=== PATIENT | female | born 1960 | race Caucasian/White ===

== ENCOUNTER 2023-07-12 20:16 | Outpatient (CLI) | payer MEDICARE, SELFPAY ==
[2023-07-12 18:35] LABS: Basophils # 0.1 K/mm3 (0-0.2); Basophils % 1.1 % (0.1-2.0); Eosinophils # 0.2 K/mm3 (0.0-0.4); Eosinophils % 2.1 % (0.1-12.0); Hematocrit 46.5 % (37.0-47.0); Hemoglobin 14.7 g/dL (12.2-16.2); Lymphocytes # 2.5 K/mm3 (0.7-4.5); Lymphocytes % 32.7 % (10-50); Mean Corpuscular HGB Conc 31.6 g/dL (31.8-35.4); Mean Corpuscular Hemoglobin 31.2 pg (27.0-31.2); Mean Corpuscular Volume 98.8 fl (81-99); Mean Platelet Volume 8.5 fl (7.4-10.4); Monocytes # 0.4 K/mm3 (0.1-1.0); Monocytes % 4.7 % (1.7-9.3); Neutrophils # 4.5 K/mm3 (1.8-7.8); Neutrophils % 59.5 % (37.0-80.0); Platelet Count 435 K/mm3 (142-424); Red Blood Count 4.71 M/mm3 (4.20-5.40); Red Cell Distribution Width 13.8 % (11.5-17.5); White Blood Count 7.6 K/mm3 (4.8-10.8)
[2023-07-12 18:46] LABS: Alanine Aminotransferase 23 U/L (12-78); Albumin Level 4.1 g/dl (3.5-5.0); Albumin/Globulin Ratio 1.4 (1.1-1.8); Alkaline Phosphatase 111 U/L (38-126); Anion Gap 10.1 mEq/L (5-15); Aspartate Amino Transferase 27 U/L (14-36); Bilirubin,Total 0.3 mg/dl (0.2-1.3); Blood Urea Nitrogen 7 mg/dl (7-17); Calcium 9.8 mg/dl (8.4-10.2); Carbon Dioxide 26 mmol/L (22.0-30.0); Chloride 109 mmol/L (98-107); Chol/HDL Ratio 4.4 (1-3.5); Cholesterol 253 mg/dl (140-200); Estimated Glomerular Filt Rate 101 ml/min (>60); GFR (African American) 122 ML/MIN (>60); Globulin 2.9 g/dL (1.3-3.2); Glucose 107 mg/dl (74-100); HDL Cholesterol 58 mg/dl (40-60); Potassium 4.1 mmoL/L (3.5-5.1); Sodium 141 mmol/L (136-145); Triglycerides 270 mg/dl (30-150); VLDL Cholesterol 54 mg/dL (0-40)
[2023-07-12 18:56] LABS: Direct LDL Cholesterol 61.74 mg/dL (100-129)
[2023-07-12 19:16] LABS: Thyroid Stimulating Hormone 0.28 uIU/mL (0.465-4.68)
[2023-07-12 19:37] LABS: Vitamin B12 > 1000 pg/mL (239-931)
[2023-07-12 20:32] LABS: Hemoglobin A1C 5.5 % (4.0-6.0)
== END 2023-07-12 23:59 ==
LOC: LAB.DROPOF 20:18
PROVIDERS: Nurse Practitioner; PCP Nurse Practitioner Acute Care; Visit Provider Nurse Practitioner Acute Care
DX: Z79.899 Other long term (current) drug therapy (principal); E78.5 Hyperlipidemia, unspecified; K21.9 Gastro-esophageal reflux disease without esophagitis; M19.90 Unspecified osteoarthritis, unspecified site; F31.9 Bipolar disorder, unspecified
CPT/HCPCS: 80053; 80061; 82607; 83036; 84443; 85025

== ENCOUNTER 2023-07-26 10:38 | Outpatient (CLI) | payer MEDICARE, SELFPAY ==
--- NOTE | 2023-07-26 10:45 | CT_ITS ---
FINAL REPORT TECHNIQUE: Thin section axial images were obtained from the lung apices to the upper abdomen by computed tomography. Reformatted images were obtained and reviewed. This study was performed with techniques to keep radiation doses al low as reasonably achievable (ALARA). Individualized dose reduction techniques using automated exposure control or adjustment of mA and/or kV according to the patient's size were employed. CLINICAL HISTORY: lung cancer screening. Smokes 1 pack per day for 53 yrs. Hx of cervical cancer 1984. Uncle had lung cancer. Exposed to second hand smoke. COMPARISON: None FINDINGS: CHEST CT LOW DOSE 62-year-old female, current smoker, 93-pbbt-tedx history of smoking. CTDI vol (mGy): 2.9 DLP (mGy-cm): 102.38 There is no axillary adenopathy. There is no mediastinal or hilar mass or adenopathy. The heart is normal in size. There is no pericardial or pleural effusion. There is mild emphysema and mild pulmonary scarring. Lung window images demonstrate a 4 mm nodule in the left upper lobe, best seen on image #27 of series 4. There is also a posterior right upper lobe 5 mm nodule seen on image #17 of series 4, and another 5 mm nodule on series 18 of series 4. Limited images of the upper abdomen are unremarkable. IMPRESSION: Lung-RADS category 2. Recommend 12 month follow up low dose chest CT. Reviewed, Interpreted and Dictated by Osvaldo Hercules MD Transcribed by Destini Sibley Authenticated and [facility]
--- NOTE | 2023-07-26 10:45 | MM_ITS ---
PROCEDURE INFORMATION: Exam: MG Bilateral Screening 3D Mammography Exam date and time: 07/26/2023 10:37 AM Age: 62 years old Clinical indication: Screening examination TECHNIQUE: Imaging protocol: Bilateral Screening tomosynthesis and 2D mammography including computer-aided detection (CAD) when performed. COMPARISON: No relevant prior studies available. FINDINGS: MAMMOGRAPHY: Breast composition: The breasts are almost entirely fatty. Mass: None. Architectural distortion: None. Calcifications: No suspicious calcifications. Asymmetric density: None. Skin thickening: None. Axillary adenopathy: None. IMPRESSION: No mammographic evidence of malignancy. Annual screening is recommended unless otherwise clinically indicated. ASSESSMENT: BI-RADS Category 1: Negative
== END 2023-07-26 23:59 | disposition home or self-care (01) ==
LOC: RAD 10:41
PROVIDERS: PCP Nurse Practitioner; Visit Provider Nurse Practitioner
DX: Z87.891 Personal history of nicotine dependence (principal); Z12.2 Encounter for screening for malignant neoplasm of respiratory organs; Z12.31 Encounter for screening mammogram for malignant neoplasm of breast
CPT/HCPCS: 71271; 77063; 77067

== ENCOUNTER 2023-08-01 18:00 | Outpatient (CLI) | payer MEDICARE, SELFPAY ==
[2023-08-01 20:19] LABS: Free Thyroxine Index 3.7 ug/dL (5.93-13.13); T4 (Thyroxine) 10.6 ug/dl (5.53-11.0); Triiodothryronine (T3) Uptake 35 % (23.5-40.5)
[2023-08-01 20:32] LABS: Thyroid Stimulating Hormone 0.34 uIU/mL (0.465-4.68)
== END 2023-08-01 23:59 | disposition home or self-care (01) ==
LOC: LAB.DROPOF 08-02 10:20
PROVIDERS: PCP Nurse Practitioner; Visit Provider Nurse Practitioner
DX: R79.89 Other specified abnormal findings of blood chemistry (principal); R94.6 Abnormal results of thyroid function studies
CPT/HCPCS: 84436; 84443; 84479

== ENCOUNTER 2023-09-26 18:00 | Outpatient (CLI) | payer MEDICARE, SELFPAY ==
[2023-09-26 19:19] LABS: Alanine Aminotransferase 19 U/L (12-78); Albumin Level 4.2 g/dl (3.5-5.0); Albumin/Globulin Ratio 1.3 (1.1-1.8); Alkaline Phosphatase 109 U/L (38-126); Anion Gap 13.3 mEq/L (5-15); Aspartate Amino Transferase 27 U/L (14-36); Bilirubin,Total 0.5 mg/dl (0.2-1.3); Blood Urea Nitrogen 12 mg/dl (7-17); Calcium 9.9 mg/dl (8.4-10.2); Carbon Dioxide 25 mmol/L (22.0-30.0); Chloride 106 mmol/L (98-107); Estimated Glomerular Filt Rate 84 ml/min (>60); GFR (African American) 102 ML/MIN (>60); Globulin 3.2 g/dL (1.3-3.2); Glucose 99 mg/dl (74-100); Potassium 4.3 mmoL/L (3.5-5.1); Sodium 140 mmol/L (136-145); Total Protein,Serum 7.4 g/dl (6.3-8.2)
== END 2023-09-26 23:59 | disposition home or self-care (01) ==
LOC: LAB.DROPOF 09-27 08:30
PROVIDERS: PCP Family Medicine; Visit Provider Family Medicine
DX: K21.9 Gastro-esophageal reflux disease without esophagitis (principal)
CPT/HCPCS: 80053

== ENCOUNTER 2023-10-20 09:16 | Outpatient (CLI) | payer MEDICARE, SELFPAY ==
--- NOTE | 2023-10-20 09:21 | XR_ITS ---
FINAL REPORT CLINICAL HISTORY: left knee pain and instability COMPARISON: None FINDINGS: Two views of the left knee were obtained. There is no evidence of fracture or dislocation. The bony alignment is normal. Mild degenerative change is present. There is no evidence of joint effusion. No localized soft tissue abnormality is seen. There is no evidence of foreign body. IMPRESSION: Mild degenerative change of the left knee without acute bony abnormality. Reviewed, Interpreted and Dictated by Jerome Cordova III, MD Transcribed by Destini Sibley Authenticated and [facility]
== END 2023-10-20 23:59 | disposition home or self-care (01) ==
LOC: RAD 09:17
PROVIDERS: PCP Nurse Practitioner; Visit Provider Orthopaedic Surgery
DX: M25.562 Pain in left knee (principal); M23.52 Chronic instability of knee, left knee
CPT/HCPCS: 73560

== ENCOUNTER 2024-10-04 18:31 | Outpatient (CLI) | payer MEDICARE, SELFPAY ==
[2024-10-04 18:52] LABS: Basophils % 0.3 % (0.1-2.0); Eosinophils # 0.1 Kmm3 (0.0-0.4); Eosinophils % 2.2 % (0.1-12.0); Hematocrit 41.5 % (37.0-47.0); Immature Granulocytes # 0.02 10^3uL; Immature Granulocytes % 0.3 %; Lymphocytes # 2.6 K/mm3 (0.7-4.5); Mean Corpuscular HGB Conc 33.7 g/dL (31.8-35.4); Mean Corpuscular Hemoglobin 31.3 pg (27.0-31.2); Mean Corpuscular Volume 92.8 fl (81-99); Mean Platelet Volume 10.6 fl (7.4-10.4); Monocytes # 0.6 K/mm3 (0.1-1.0); Monocytes % 9.8 % (1.7-9.3); Neutrophils # 2.9 K/mm3 (1.8-7.8); Neutrophils % 46.4 % (37.0-80.0); Nucleated Red Blood Cells # 0 10^3/uL; Nucleated Red Blood Cells % 0 %; Platelet Count 416 K/mm3 (142-424); Red Blood Count 4.47 M/mm3 (4.20-5.40); Red Cell Distribution Width 15.1 % (11.5-17.5); Red Cell Distribution Width-SD 49.6 fL; White Blood Count 6.3 K/mm3 (4.8-10.8)
[2024-10-04 19:16] LABS: Chloride 104 mmol/L (98-107); Potassium 4.1 mmoL/L (3.5-5.1); Sodium 141 mmol/L (136-145)
[2024-10-04 19:18] LABS: Blood Urea Nitrogen 7 mg/dl (7-17); Estimated Glomerular Filt Rate 100 ml/min (>60); GFR (African American) 121 ML/MIN (>60)
[2024-10-04 19:19] LABS: Alanine Aminotransferase 22 U/L (12-78); Alkaline Phosphatase 96 U/L (38-126); Aspartate Amino Transferase 28 U/L (14-36); Bilirubin,Total 0.4 mg/dl (0.2-1.3); Calcium 9.5 mg/dl (8.4-10.2); Cholesterol 182 mg/dl (140-200); Glucose 104 mg/dl (74-100); HDL Cholesterol 45 mg/dl (40-60); Total Protein,Serum 7.4 g/dl (6.3-8.2); Triglycerides 116 mg/dl (30-150); VLDL Cholesterol 23 mg/dL (0-40)
[2024-10-04 19:30] LABS: Direct LDL Cholesterol 73.89 mg/dL (100-129)
[2024-10-04 19:35] LABS: Hemoglobin A1C 6.2 % (4.0-6.0)
[2024-10-04 19:50] LABS: Thyroid Stimulating Hormone 0.84 uIU/mL (0.465-4.68)
[2024-10-04 19:59] LABS: HIV Combo NEGATIVE (Negative)
[2024-10-04 20:08] LABS: Albumin Level 4.3 g/dl (3.5-5.0); Albumin/Globulin Ratio 1.4 (1.1-1.8); Anion Gap 15.1 mEq/L (5-15); Carbon Dioxide 26 mmol/L (22.0-30.0); Globulin 3.1 g/dL (1.3-3.2)
[2024-10-04 20:14] LABS: Hepatitis C Ab Qual. W/ RFX NEGATIVE (Negative)
[2024-10-04 20:17] LABS: Vitamin B12 986 pg/mL (239-931)
== END 2024-10-04 23:59 | disposition home or self-care (01) ==
LOC: LAB 18:32
PROVIDERS: PCP Nurse Practitioner; Visit Provider Nurse Practitioner
DX: E78.5 Hyperlipidemia, unspecified (principal); K21.9 Gastro-esophageal reflux disease without esophagitis; M19.90 Unspecified osteoarthritis, unspecified site; F41.9 Anxiety disorder, unspecified; R79.89 Other specified abnormal findings of blood chemistry; Z13.1 Encounter for screening for diabetes mellitus; Z13.0 Encounter for screening for diseases of the blood and blood-forming organs and certain disorders involving the immune mechanism
CPT/HCPCS: 80053; 80061; 82607; 83036; 84443; 85025; 86803; 87389

== ENCOUNTER 2025-02-18 16:41 | Outpatient (CLI) | payer MEDICARE, MEDICAID, SELFPAY ==
[2025-02-18 16:23] LABS: Hemoglobin A1C 5.4 % (4.0-6.0)
[2025-02-18 18:29] LABS: Alanine Aminotransferase 24 U/L (12-78); Albumin Level 4.2 g/dl (3.5-5.0); Albumin/Globulin Ratio 1.2 (1.1-1.8); Alkaline Phosphatase 120 U/L (38-126); Anion Gap 10.7 mEq/L (5-15); Aspartate Amino Transferase 29 U/L (14-36); Bilirubin,Total 0.4 mg/dl (0.2-1.3); Blood Urea Nitrogen 11 mg/dl (7-17); Calcium 9.7 mg/dl (8.4-10.2); Carbon Dioxide 25 mmol/L (22.0-30.0); Chloride 104 mmol/L (98-107); Creatinine,Serum 0.70 mg/dl (0.52-1.04); Estimated Glomerular Filt Rate 84 ml/min (>60); GFR (African American) 101 ML/MIN (>60); Globulin 3.6 g/dL (1.3-3.2); Glucose 92 mg/dl (74-100); Potassium 4.7 mmoL/L (3.5-5.1); Sodium 135 mmol/L (136-145); Total Protein,Serum 7.8 g/dl (6.3-8.2)
--- OUTSIDE RECORDS SUMMARY | 2025-02-19 16:45 | XMS_ITS | Clinical Summary ---
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 (ICD-10-CM ) 11/04 Active 11/04 Ten Mina MD Spondylosis without myelopathy or radiculopathy, lumbosacral region (mri 09/17 - listhesis L4-5) DDD + SPURRING C5-C7 M47.812 (ICD-10-CM ) 11/04 Active 11/04 Ten Mina MD Spondylosis without myelopathy or radiculopathy, cervical region History of HYPERCHOLES TEROLEMIA 07988762 (SNOMED CT) 11/04 Active 11/04 Eileen Quinn MA Hypercholestero lemia NECK PAIN 35745911 (SNOMED CT) 11/04 Correction 11/04 Eileen Quinn MA Neck pain LUMBAR RADICULOPAT HY 896560574 (SNOMED CT) 11/04 Correction 11/04 Eileen Quinn MA Lumbar radiculopathy BACK PAIN, LUMBAR [id number] (SNOMED CT) 11/04 Correction 11/04 Eileen Quinn MA Low back pain Medications Medication Instructions Start Date Stop Date Generic Name [facility] Provider KENDRICK TABS Non-[place] 7 ZOLPIDEM TARTRATE TABS [id number] Eileen Quinn MA IMITREX TABS Non-[place] 7 SUMATRIPTAN SUCCINATE TABS [id number] Eileen Kai MA XANAX TABS Non-[place] 7 ALPRAZOLAM TABS [id number] Eileenyandel Quinn JACOB LITHIUM CARBONATE TABS Non-[place] 7 LITHIUM CARBONATE TABS [id number] Eileen Kai JACOB LEXAPRO TABS [facility] 7 ESCITALOPRAM OXALATE TABS [id number] Eileen Quinn MA Medications Administered No information available. Allergies, Adverse Reactions, Alerts Allergy Name Reaction Description Start Date Severity Statu s Provider MORPHINE Critical Eileen chavarria MA CODEINE Critical Eileen chavarria MA Results No information available. Plan of Care Type Date Detail Pending order MRI Lumbar Pending order MRI Cervical Procedures No information available. Vital Signs Date Name Value Unit Description BP Diastolic 70 mm[Hg] blood pressu re, diastolic BP Systolic 110 mm[Hg] blood pressur e, systolic Height 63 [in_us] height E&M Weight Measured 160 [lb_av] weight E& M Weight Measured 160 [lb_av] weight E& M Heart Rate 72 /min pulse rate Immunizations No information available. Advance Directives No information available.
== END 2025-02-18 23:59 | disposition home or self-care (01) ==
LOC: LAB.DROPOF 02-19 16:42
PROVIDERS: PCP Nurse Practitioner; Visit Provider Nurse Practitioner
DX: R73.01 Impaired fasting glucose (principal)
CPT/HCPCS: 80053; 82043; 82570; 83036